=== PATIENT | male | born 1990 | race Caucasian/White ===

== ENCOUNTER 2020-11-25 07:53 | Emergency (ER) | payer MEDICAID, SELFPAY ==
[2020-11-25 07:54] VITALS: BP 130/76; PULSE 72; RESP 16; TEMP 35.7; O2SAT 100; BMI 20.3
--- NOTE | 2020-11-25 09:18 | CT_ITS ---
STUDY: CT BRAIN WITHOUT CONTRAST REASON FOR EXAM: Male, 30 years old. headache RADIATION DOSAGE (If Supplied By Facility): CTDIvol = ( ) mGy, DLP = ( ) mGycm TECHNIQUE: Transaxial CT imaging of the brain was performed without administration of intravenous contrast material. Individualized dose optimization techniques were used for this CT. COMPARISON: No relevant priors. FINDINGS: Normal size ventricles and extra-axial spaces for the patient''s age. Normal white matter tracts of the cerebral hemispheres. There is no intracranial hemorrhage. There are no findings of an acute ischemic infarction. Normal visualized paranasal sinuses. CT/Brain/Head without Contrast IMPRESSION: Normal unenhanced CT scan of the brain. Electronically Signed: Tomi Pack MD at 10:35 EDT Tel , Service support ,
--- NOTE | 2020-11-25 09:22 | EDS_ITS ---
HPI History of Present Illness Chief Complaint: Headache Narrative Narrative: 30-year-old male with history of epilepsy currently on Depakote presenting with headache which she describes as right-sided. He states this is been ongoing for 3 days. He denies this is a new acute onset headache. He has no photophobia, phonophobia, visual complaint, fever, chills, neck pain or stiffness. He does not have nausea or vomiting. He has been having a stable gait. He states he was given some sumatriptan by his brother as he has history of migraine and this did not help. Patient has not tried Tylenol or ibuprofen. Patient states he has been able to sleep secondary to pain. [facility] Medical History Epilepsia Seizures Home Medications divalproex 1,500 mg PO 11/25/20 [History Last Taken Unknown] Allergy/AdvReac Type Severity Reaction Status Date / Time No Known Allergies Allergy Verified 11/25/20 07:54 Social History Smoking Status: Current every day smoker tobacco type: cigarettes ROS ROS ED Constitutional Constitutional ED: Denies chills or fever(s) Eyes Eyes: Denies blurry vision or diplopia ENT ENT ED: Denies rhinorrhea or sore throat Cardiovascular Cardiovascular: Denies chest pain or palpitations Respiratory/Chest Respiratory/Chest: Denies cough, dyspnea or sputum Gastrointestinal Gastrointestinal: Denies abdominal pain, nausea or vomiting Genitourinary Genitourinary ED: Denies dysuria or hematuria Musculoskeletal Musculoskeletal: Denies arthralgias or myalgias Integumentary Denies abscess or rash Neurologic Neurologic: Reports headache(s); Denies paresthesias Psychiatric Psychiatric: Denies anxiety or depression Endocrine Endocrinology: Denies polydipsia or polyuria EXAM Physical Exam Const Vital Signs: 11/25/20 07:54 Temperature 96.2 F L Temperature Source Temporal Pulse Rate 72 Respiratory Rate 16 Blood Pressure 130/76 H Blood Pressure Mean 94 Pulse Ox 100 Oxygen Delivery Method Room Air Positive well nourished General Appearance ED: NAD; Negative for pallor HEENT Reports normocephalic, head/scalp atraumatic and moist mucous membranes HEENT Narrative: No right or left temporal tenderness to palpation. Eyes PERRL and EOMs intact bilaterally Neck no lymphadenopathy and supple Chest Wall inspection of chest normal and palpation of chest normal Resp normal respiratory effort and clear to auscultation bilaterally Auscultation: Negative for rales, rhonchi or wheezes Cardio regular rate and regular rhythm GI normal to inspection, nondistended, normoactive bowel sounds and non-distended Auscultation: normoactive bowel sounds Palpation: soft Narrative: Deferred Extremity normal to inspection General Extremety ED: Yes edema and tenderness General Extremity: edema Neuro oriented x3, CN's II-XII intact bilaterally and no sensory deficits noted Sensorium / Orientation: alert Motor Exam: strength 5/5 throughout Psych mental status grossly normal Attitude: No agitated Skin no rashes or lesions noted and no wounds General Skin Exam: Negative for jaundice or pallor MDM MDM MDM Narrative Medical decision making narrative: Patient presenting with right-sided headache which has been going on for a couple of days. He tried sumatriptan without relief. On arrival he has no focal neurologic deficits or lateralizing signs or symptoms. He does not have phonophobia or photophobia. He states he had not tried Tylenol or ibuprofen. Patient had a normal CBC and BMP and his valproic acid is within therapeutic range. Patient was given Compazine and Benadryl and on reevaluation the patient had pulled out his IV and left stating to the nurse that he had a family emergency. This is prior to his head CT imaging results. His head CT did ultimately come back negative for acute intracranial process. Impression: 1. Headache 2. [facility]opement Lab Data Labs: Laboratory Results - last 24 hr 11/25/20 11/25/20 11/25/20 07:30 07:30 07:30 WBC 6.7 RBC 5.68 Hgb 16.5 Hct 50.8 MCV 89.4 MCH 29.0 MCHC 32.5 RDW Std Deviation 42.3 RDW Coeff of Arpita 12.8 Plt Count 359 MPV 8.7 Immature Gran % (Auto) 0.400 Neut % (Auto) 52.0 Lymph % (Auto) 30.7 [place] % (Auto) 11.3 H Eos % (Auto) 4.7 Baso % (Auto) 0.9 Absolute Neuts (auto) 3.5 Absolute Lymphs (auto) 2.07 Nucleated RBC % 0 Sodium 140 Potassium 4.1 Chloride 107 Carbon Dioxide 26.0 Anion Gap 7 BUN 9 Creatinine 0.88 Estim Creat Clear Calc 102.37 Est GFR (MDRD) Af Amer 130 Est GFR (MDRD) Non-Af 108 BUN/Creatinine Ratio 10.2 Glucose 79 Calcium 9.4 Valproic Acid 67 Radiography Diagnostic Testing: Radiology Impression Brain CT 11/25/20 09:18 IMPRESSION: Normal unenhanced CT scan of the brain. Electronically Signed: Tomi Pack MD at 10:35 EDT Tel , Service support , Discharge Plan Triage Chief Complaint: Headache ED Provider: Eulogio Velásquez Dx/Rx/DC Orders Instructions: ED Headache Unspecified Prescriptions: No Action divalproex 500 mg tablet extended release 24 hr 1,500 mg PO RF: 0 Primary Care Provider: Zackery Coburn Referrals: Zackery Coburn DO [Primary Care Provider] - Disposition Disposition: [facility]op[facility] Discharge Date/Time: 11/25/20 10:33
[2020-11-25 09:41] LABS: Absolute Lymphocyte Count 2.07 X10^3/uL (0.83-4.51); Absolute Neutrophil Count 3.5 X10^3/uL (2.0-7.7); Basophil# 0.06 X10^3/uL; Basophil% 0.9 % (0-1); Eosinophil# 0.32 X10^3/uL; Eosinophils% 4.7 % (0-5); Hematocrit 50.8 % (40-54); Hemoglobin 16.5 g/dL (13.0-16.5); Lymphocyte # 2.07 X10^3/ul (0.83-4.51); Lymphocyte % 30.7 % (19-41); Mean Corp Hgb Conc 32.5 g/dL (32-36); Mean Corpuscular Volume 89.4 fL (80-94); Mean Platelet Vol. 8.7 fl (6.2-12.0); Monocyte# 0.76 X10^3/uL; Monocyte% 11.3 % (0-10); NRBC Flagged by Analyzer 0 % (0-5); Platelet Count 359 K/mm3 (150-450); RBC Distribution Width CV 12.8 % (11.6-14.6); RBC Distribution Width SD 42.3 fl (35.1-43.9); Red Blood Count 5.68 M/mm3 (4.6-6.2); White Blood Count 6.7 K/mm3 (4.4-11.0)
[2020-11-25] MEDS: proCHLORPERazine 10 MG/2 ML Vial IV (09:50)
[2020-11-25] MEDS: DiphenhydrAMINE 50 MG/ML Syringe 25 MG IV (09:50)
[2020-11-25 09:55] LABS: Anion Gap 7 (5-15); BUN 9 mg/dL (7-18); BUN/Creat Ratio 10.2 RATIO (10-20); Calcium,Total 9.4 mg/dL (8.5-10.1); Chloride 107 mmol/L (98-107); Creatinine, Serum 0.88 mg/dL (0.70-1.30); EST Glomerular Filtration Rate 108 mL/min (>60); Est Glom Filt Rate - Afr Amer 130 mL/min (>60); Estimated Creatinine Clearance 102.37 ml/min; Glucose 79 mg/dL (74-106); Potassium 4.1 mmol/L (3.5-5.1); Sodium Level 140 mmol/L (136-145)
[2020-11-25 10:17] LABS: Valproic Acid (Depakene) Level 67 ug/mL (50-100)
--- NOTE | 2020-11-25 10:30 | ED.RN ---
This RN finds pt in the hallway. Pt states I am leaving, states I have an emergency. Pt had removed own IV . Pt states ride is coming
== END 2020-11-25 10:33 | disposition left against medical advice (07) ==
PROVIDERS: Emergency Provider Student in an Organized Health Care Education/Training Program; PCP Preventive Medicine Occupational Medicine
DX: R51.9 Headache, unspecified (principal); Z53.21 Procedure and treatment not carried out due to patient leaving prior to being seen by health care provider; G40.909 Epilepsy, unspecified, not intractable, without status epilepticus; Z79.899 Other long term (current) drug therapy; F17.210 Nicotine dependence, cigarettes, uncomplicated
CPT/HCPCS: 70450; 80048; 80164; 85025; 96374; 96375; 99281; 99282; A4216

== ENCOUNTER 2021-10-24 15:30 | Emergency (ER) | payer MEDICAID, SELFPAY ==
[2021-10-24 15:30] VITALS: BP 127/71; PULSE 74; RESP 16; TEMP 36.6; O2SAT 100; BMI 21.1
--- NOTE | 2021-10-24 17:04 | ED.RN ---
p called from triage to go back to room. no longer present in the department. registration informed of lwbs.
== END 2021-10-24 17:05 | disposition home or self-care (01) ==
LOC: ED 17:06
PROVIDERS: PCP Preventive Medicine Occupational Medicine
DX: Z53.21 Procedure and treatment not carried out due to patient leaving prior to being seen by health care provider (principal)

== ENCOUNTER 2022-12-25 11:21 | Emergency (ER) | payer MEDICARE, MEDICAID, SELFPAY ==
[2022-12-25 11:21] VITALS: BP 124/80; PULSE 70; RESP 18; TEMP 35.9; O2SAT 100; BMI 18.6
[2022-12-25 12:01] LABS: Absolute Neutrophil Count 7.8 X10^3/uL (2.0-7.7); Basophil# 0.08 X10^3/uL; Basophil% 0.7 % (0-1); Eosinophils% 1.7 % (0-5); Hematocrit 43.5 % (40-54); Hemoglobin 14.9 g/dL (13.0-16.5); Lymphocyte % 19.8 % (19-41); Mean Corp Hgb Conc 34.3 g/dL (32-36); Mean Corpuscular Hgb 29.7 pg (27.0-32.0); Mean Corpuscular Volume 86.7 fL (80-94); Mean Platelet Vol. 8.6 fl (6.2-12.0); Monocyte% 10.3 % (0-10); NRBC Flagged by Analyzer 0 % (0-5); Neutrophil # 7.78 X10^3/uL (2.7-7.7); Neutrophil % 67.2 % (47-70); Platelet Count 314 K/mm3 (150-450); RBC Distribution Width CV 12.9 % (11.6-14.6); RBC Distribution Width SD 40.1 fl (35.1-43.9); Red Blood Count 5.02 M/mm3 (4.6-6.2); White Blood Count 11.6 K/mm3 (4.4-11.0)
[2022-12-25 12:24] LABS: ALB/GLOB Ratio 1.1 RATIO (0.9-2.4); AST(SGOT) 18 U/L (15-37); Alanine Aminotransfer ALT/SGPT 28 U/L (16-61); Albumin, Serum 3.9 g/dL (3.2-5.0); Alkaline Phosphatase 111 U/L (45-117); Anion Gap 4 (5-15); BUN 17 mg/dL (7-18); BUN/Creat Ratio 19.8 RATIO (10-20); Calcium,Total 9.4 mg/dL (8.5-10.1); Chloride 104 mmol/L (98-107); Creatinine, Serum 0.86 mg/dL (0.70-1.30); EST Glomerular Filtration Rate 110 mL/min (>60); Est Glom Filt Rate - Afr Amer 133 mL/min (>60); Estimated Creatinine Clearance 94.15 ml/min; Globulin 3.4 g/dL (2.2-4.2); Glucose 85 mg/dL (74-106); Potassium 4.1 mmol/L (3.5-5.1); Protein, Total 7.3 g/dL (6.4-8.2); Sodium Level 139 mmol/L (136-145)
--- NOTE | 2022-12-25 13:21 | ED.RN ---
Pt. requesting to leave. PIV removed and pt. has left unit.
== END 2022-12-25 13:21 | disposition left against medical advice (07) ==
LOC: ED 13:22
PROVIDERS: PCP Preventive Medicine Occupational Medicine
DX: R11.2 Nausea with vomiting, unspecified (principal)
CPT/HCPCS: 80053; 85025; 99282

== ENCOUNTER 2024-02-11 00:25 | Emergency (ER) | payer MEDICARE, MEDICAID, SELFPAY ==
[2024-02-11 00:26] VITALS: BP 132/81; PULSE 82; RESP 17; TEMP 36.9; O2SAT 98; BMI 17.4
--- NOTE | 2024-02-11 00:52 | EDS_ITS ---
HPI History of Present Illness Chief Complaint: Other, Pain/Inj Informant: patient Onset/Context/Timing Onset: Days Context: Gradual Onset Timing: Continuous Current Severity: Mild Maximum Severity: Mild Associated Symptoms Assocated Symptom - Dental: jaw swelling Narrative Narrative: 33-year-old male history of seizure disorder on seizure medications. Said he has right lower jaw discomfort and swelling for the last 3 days. No fever. No trouble swallowing or breathing. Prior episode of this when he had infected tooth but that tooth is since been pulled. Denies any trauma. No injury. Prior similar symptoms: Yes Recent Illness/Hospitalization: No [facility] Medical History Epilepsia Seizures Home Medications ?Medication ?Instructions ?Recorded ?Last Taken ?Type divalproex 500 mg tablet,extended 1,500 mg PO DAILY 11/25/20 Unknown History release 24 hr penicillin V potassium 500 mg 500 mg PO 4X/DAY #40 tabs 02/11/24 Unknown Rx tablet Allergy/AdvReac Type Severity Reaction Status Date / Time No Known Allergies Allergy Verified 02/11/24 00:26 Social History Smoking Status: Current every day smoker tobacco type: cigarettes ROS ROS ED ROS Narrative Denies recent illness. Constitutional Constitutional ED: Denies chills or fever(s) Eyes Eyes: Denies blurry vision ENT ENT ED: Denies ear pain Cardiovascular Cardiovascular: Denies chest pain Respiratory/Chest Respiratory/Chest: Denies cough Gastrointestinal Gastrointestinal: Denies abdominal pain Genitourinary Genitourinary ED: Denies dysuria Musculoskeletal Musculoskeletal: Denies arthralgias Integumentary Denies abscess Neurologic Neurologic: Denies headache(s) Psychiatric Psychiatric: Denies anxiety Endocrine Endocrinology: Denies cold intolerance Hematologic/Lymphatic Hematologic/Lymphatic: Denies easy bleeding Allergic/Immunologic Allergic/Immunologic ED: Denies mouth swelling EXAM Physical Exam Narrative Exam Narrative: Well-appearing 33-year-old male. Vital signs stable afebrile. No acute distress. H EENT exam is got poor dentition with cavities. Right lower jaw there is a missing tooth that was pulled. He has some mild swelling and tenderness of the jaw there. There is no drainable abscess. No trismus. Underneath his tongue is soft and nontender. No trouble breathing or swallowing. Posterior pharynx is unremarkable. Neck nontender. Trachea midline. No lymphadenopathy. Lungs clear to auscultation. Heart regular rhythm rate about 80 no murmur. Chest wall on ribs nontender. Abdomen soft nontender. Otherwise exam unremarkable. Exam is consistent with a dental infection. Const Vital Signs: 02/11/24 00:26 02/11/24 00:26 Temperature 98.4 F Temperature Source Oral Pulse Rate 82 Respiratory Rate 17 Respiratory Effort Normal Non-Labored Blood Pressure 132/81 H Blood Pressure Mean 98 Pulse Ox 98 Oxygen Delivery Method Room Air Positive well nourished and well developed; Negative for obese, cachectic, contractures or unkempt General Appearance ED: well developed and NAD; Negative for unkempt, cachectic or contractures Nutritional Appearance: Negative for cachectic or obese HEENT HEENT Narrative: Mild right sided lower jaw tenderness and swelling. Nothing to drain. No trismus. No Greyson's angina. No trouble swallowing or breathing. Negative for trauma or tenderness Mouth ED: Yes oral and palatal mucosa normal, Yes lips normal, Yes tongue normal, Yes salivary gland normal, No mouth trauma and No salivary gland abnormal Mouth: oral and palatal mucosa normal, lips normal, tongue normal, salivary gland normal, No mouth trauma and No salivary gland abnormal Teeth and Gingiva: caries Throat: posterior oropharynx normal Eyes PERRL and EOMs intact bilaterally General Eye ED: Negative for pale conjunctiva or scleral icterus Neck no lymphadenopathy, supple and no JVD Neck Narrative: Trachea midline. Lymph Lymphatic: no lymphadenopathy noted Chest Wall inspection of chest normal and palpation of chest normal Resp normal respiratory effort, no retractions and clear to auscultation bilaterally Cardio regular rate, regular rhythm, S1 normal heart sound, S2 normal heart sound and no murmurs GI normal to inspection, nondistended, normoactive bowel sounds, non-tender, non- distended and no masses Palpation: soft Back/Spine no CVA tenderness Extremity normal to inspection and no joint enlargement General Extremety ED: Negative for edema General Extremity: Negative for edema Neuro oriented x3, CN's II-XII intact bilaterally, moves all extremities and no focal motor deficits Sensorium / Orientation: alert, oriented to person, oriented to place and oriented to time; Negative for orientation impaired Motor Exam: strength 5/5 throughout Psych mental status grossly normal Appearance: Negative for unkempt Mood & Affect: Negative for depressed or anxious Skin no rashes or lesions noted and no wounds General Skin Exam: Negative for other Image ED - URI/Dental Diagram: 2 1. Right lower jaw mild swelling. Poor dentition. Cavities. No dental tenderness. No trismus. No trouble swallowing or breathing. No Tonja's. MDM MDM MDM Narrative Medical decision making narrative: Patient appears to be having dental infection. Placed on Pen-Vee K 500 4 times daily for 10 days. Motrin Tylenol for pain. To follow-up with his dentist. To be given his first dose antibiotic here. There is nothing to drain at this time. Discharge Plan Triage Chief Complaint: Other, Pain/Inj ED Provider: Matt Kiran Dx/Rx/DC Orders Clinical Impression: Abscess, dental Instructions: ED Dental Abscess Prescriptions: New penicillin V potassium 500 mg tablet 500 mg PO 4X/DAY Qty: 40 0RF No Action divalproex 500 mg tablet extended release 24 hr 1,500 mg PO DAILY Patient Comments: TAKE 3 TABLETS BY MOUTH DAILY AT BEDTIME. Primary Care Provider: Zackery Coburn Referrals: Zackery Coburn DO [Primary Care Provider] - Activity Restrictions/Additional Instructions: The antibiotic penicillin 1 pill 4 times a day till gone. Warm salt water rinses. Ice your jaw. Motrin and Tylenol for pain. Call and follow-up with your dentist as soon as possible. This is an infection. There is nothing to drain at this time. Hopefully the antibiotic will take care of it. If it gets worse it may need to be drained. Print Language: Bengali Disposition Disposition: Home, Self Care
[2024-02-11] MEDS: Penicillin Vk 250 MG Tablet 500 MG PO (00:58)
[2024-02-11 00:59] VITALS: BP 132/81; PULSE 80; RESP 17; TEMP 36.9; O2SAT 98
== END 2024-02-11 01:00 | disposition home or self-care (01) ==
LOC: ED 00:54
PROVIDERS: Emergency Provider Emergency Medicine; PCP Preventive Medicine Occupational Medicine; Visit Provider Emergency Medicine
DX: K04.7 Periapical abscess without sinus (principal); G40.909 Epilepsy, unspecified, not intractable, without status epilepticus; Z79.899 Other long term (current) drug therapy; F17.210 Nicotine dependence, cigarettes, uncomplicated
CPT/HCPCS: 99282